=== PATIENT | male | born 1970 | race Caucasian/White ===

== ENCOUNTER 2024-06-21 12:03 | Observation (INO) ==
[2024-06-21] MEDS ORDERED: IOPAMIDOL 100 ML BOTTLE IV ONE (12:04)
[2024-06-21 13:10] LABS: Basophils # (Auto) 0.03 K/mcL (0.00-0.30); Basophils % (Auto) 0.7 % (0.0-2.0); Eosinophils # (Auto) 0.19 K/mcL (0.00-0.70); Eosinophils % (Auto) 4.2 % (0.0-7.0); Hematocrit 44.1 % (40.1-51.0); Hemoglobin 14.5 g/dL (13.7-17.5); Lymphocytes # (Auto) 0.92 K/mcL (1.50-4.80); Lymphocytes % (Auto) 20.1 % (15.5-49.0); Mean Cell Volume 96.9 fL (80.0-100.0); Mean Corpuscular HGB Conc 32.9 g/dL (31.0-36.0); Mean Platelet Volume 11.1 fL (8.8-12.5); Monocytes # (Auto) 0.51 K/mcL (0.10-0.90); Monocytes % (Auto) 11.2 % (1.0-12.0); Neutrophils % (Auto) 63.6 % (38.0-78.0); Platelet Count 167 K/mcL (140-440); RBC 4.55 M/mcL (4.63-6.08); Red Cell Distribution Width 11.7 % (11.5-14.5); WBC 4.6 K/mcL (4.5-11.0)
[2024-06-21] MEDS: 0.9 % SODIUM CHLORIDE 1,000 ML IV SCH (13:17)
[2024-06-21 13:31] LABS: Alcohol, Blood < 10.1 mg/dL; Alcohol,Blood < 0.010 gm/dL (<0.010)
[2024-06-21 13:40] LABS: ALT/SGPT 20 U/L (<40); AST/SGOT 22 U/L (<40); Albumin 4.5 gm/dL (3.2-5.2); Albumin/Globulin Ratio 1.9 (1.0-2.3); Alkaline Phosphatase 71 U/L (39-117); Bilirubin,Total 0.4 mg/dL (0.1-1.0); Blood Urea Nitrogen 13 mg/dL (6-20); Calcium 9.5 mg/dL (8.6-10.4); Carbon Dioxide 23 mmol/L (22-30); Chloride 105 mmol/L (96-108); Globulin 2.4 gm/dL (2.2-3.7); Glomerular Filtration Rate 75; Glucose 113 mg/dL (70-105); Potassium 3.7 mmol/L (3.3-5.1); Sodium 142 mmol/L (133-145); Thyroid Stimulating Hormone 3.31 uIU/mL (0.27-5.01)
[2024-06-21] MEDS: ASPIRIN 81 MG TAB.CHEW CHEWED ONE (15:30)
[2024-06-21 16:35] LABS: HDL Cholesterol 48 mg/dL (>40); LDL Cholesterol,Calculated 117 mg/dL (<100); Non-HDL Cholesterol 152 mg/dL (<130); Triglycerides 176 mg/dL (<150)
[2024-06-21 17:09] LABS: Estimated Average Glucose(eAG) 148 mg/dL; Hemoglobin A1C 6.8 % Hgb (4.0-6.0); Thyroid Stimulating Hormone 3.53 uIU/mL (0.27-5.01)
[2024-06-21] MEDS ORDERED: ACETAMINOPHEN 325 MG TABLET PO PRN (17:54)
[2024-06-21] MEDS ORDERED: ONDANSETRON 4 MG/2 ML VIAL IV PRN (17:54)
[2024-06-21] MEDS: CLOPIDOGREL 300 MG TABLET PO ONE ×2 (20:19)
[2024-06-21] MEDS: ATORVASTATIN 40 MG TABLET PO SCH (20:19)
[2024-06-21] MEDS: ENOXAPARIN 40 MG/0.4 ML SYRINGE SQ SCH (20:19)
[2024-06-21] MEDS: 0.9 % SODIUM CHLORIDE 10 ML SYRINGE IV SCH (20:20)
[2024-06-22 06:40] LABS: Basophils # (Auto) 0.04 K/mcL (0.00-0.30); Basophils % (Auto) 0.9 % (0.0-2.0); Eosinophils # (Auto) 0.09 K/mcL (0.00-0.70); Eosinophils % (Auto) 1.9 % (0.0-7.0); Hematocrit 39.8 % (40.1-51.0); Hemoglobin 13.6 g/dL (13.7-17.5); Lymphocytes # (Auto) 1.07 K/mcL (1.50-4.80); Lymphocytes % (Auto) 23.2 % (15.5-49.0); Mean Cell Volume 95.4 fL (80.0-100.0); Mean Corpuscular HGB Conc 34.2 g/dL (31.0-36.0); Mean Platelet Volume 11.7 fL (8.8-12.5); Monocytes # (Auto) 0.68 K/mcL (0.10-0.90); Monocytes % (Auto) 14.7 % (1.0-12.0); Neutrophils % (Auto) 59.3 % (38.0-78.0); Platelet Count 148 K/mcL (140-440); RBC 4.17 M/mcL (4.63-6.08); Red Cell Distribution Width 11.8 % (11.5-14.5); WBC 4.6 K/mcL (4.5-11.0)
[2024-06-22 07:03] LABS: Blood Urea Nitrogen 11 mg/dL (6-20); Calcium 8.7 mg/dL (8.6-10.4); Carbon Dioxide 21 mmol/L (22-30); Chloride 104 mmol/L (96-108); Glomerular Filtration Rate 96; Glucose 126 mg/dL (70-105); Potassium 3.4 mmol/L (3.3-5.1); Sodium 140 mmol/L (133-145)
[2024-06-22] MEDS: CLOPIDOGREL 75 MG TABLET PO SCH (09:00)
[2024-06-22] MEDS: ASPIRIN 81 MG TAB.CHEW CHEWED SCH (09:00)
== END 2024-06-22 16:40 | disposition home or self-care (01) ==
LOC: ED 12:03 → INTOOBSV 17:36 → MEDSUR 17:36
PROVIDERS: ADMIT Student in an Organized Health Care Education/Training Program; ATTEND Student in an Organized Health Care Education/Training Program